=== PATIENT | female | born 1980 | race Caucasian/White ===

== ENCOUNTER 2017-02-09 08:35 | Outpatient (RCR) | payer OTHER ==
[~2017-02-09 08:35] MED LIST: BUTA1TAB55 PO; CETI10CA PO; HYDR1TAB PO
== END 2017-02-09 09:59 | disposition home or self-care (01) ==
PROVIDERS: ATTEND Obstetrics & Gynecology
DX: R10.2 Pelvic and perineal pain (principal)

== ENCOUNTER 2021-02-02 21:33 | Emergency (ER) | payer BC, OTHER ==
[~2021-02-02] VITALS: Ht 162 cm; Wt 97.5 kg
[2021-02-02 22:20] LABS: BASOPHILS # (AUTO) 0.1 10^3/uL (0.0-0.1); BASOPHILS % (AUTO) 0 % (0-10); EOSINOPHILS # (AUTO) 0.2 10^3/uL (0.0-0.3); EOSINOPHILS % (AUTO) 1 % (0-10); HEMATOCRIT 42 % (35-52); HEMOGLOBIN 14.1 g/dL (11.5-16.0); LYMPHOCYTES % (AUTO) 23 % (12-44); MEAN CORPUSCULAR HEMOGLOBIN 30 pg (25-34); MEAN CORPUSCULAR HGB CONC 34 g/dL (32-36); MEAN CORPUSCULAR VOLUME 87 fL (80-99); MEAN PLATELET VOLUME 9.9 fL (9.0-12.2); MONOCYTES # (AUTO) 0.8 10^3/uL (0.0-1.0); MONOCYTES % (AUTO) 6 % (0-12); NEUTROPHILS # (AUTO) 9.4 10^3/uL (1.8-7.8); NEUTROPHILS % (AUTO) 70 % (42-75); PLATELET COUNT 380 10^3/uL (130-400); WHITE BLOOD COUNT 13.5 10^3/uL (4.3-11.0)
[2021-02-02 22:33] LABS: ALBUMIN 4.2 GM/DL (3.2-4.5); CHLORIDE 102 MMOL/L (98-107); POTASSIUM 3.1 MMOL/L (3.6-5.0); SODIUM 138 MMOL/L (135-145)
[2021-02-02 22:34] LABS: CALCIUM 9.2 MG/DL (8.5-10.1)
[2021-02-02 22:35] LABS: GLUCOSE 104 MG/DL (70-105)
[2021-02-02 22:36] LABS: CARBON DIOXIDE 22 MMOL/L (21-32)
[2021-02-02 22:37] LABS: BILIRUBIN,TOTAL 0.2 MG/DL (0.1-1.0)
[2021-02-02 22:39] LABS: ALKALINE PHOSPHATASE 112 U/L (40-136); CREATININE SERUM 0.78 MG/DL (0.60-1.30); ERYTHROCYTE SEDIMENTATION RATE 8 MM/HR (0-20); GFR ESTIMATED > 60
[2021-02-02 22:40] LABS: BUN/CREATININE RATIO 14
[2021-02-02 22:42] LABS: ALANINE AMINOTRANSFERASE 23 U/L (0-55)
[2021-02-02 23:00] LABS: AMPHETAMINE SCREEN, URINE NEGATIVE (NEGATIVE); BARBITURATE SCREEN URINE NEGATIVE (NEGATIVE); BENZODIAZEPINES SCREEN URINE NEGATIVE (NEGATIVE); CANNABINOID SCREEN, URINE NEGATIVE (NEGATIVE); COCAINE SCREEN URINE NEGATIVE (NEGATIVE); METHADONE STAT NEGATIVE (NEGATIVE); METHAMPHETAMINE SCREEN URINE S NEGATIVE (NEGATIVE); OPIATE SCREEN URINE NEGATIVE (NEGATIVE); OXYCODONE STAT NEGATIVE (NEGATIVE); PROPOXYPHENE STAT NEGATIVE (NEGATIVE); TRICYCLIC ANTIDEPRESSANTS SCRE POSITIVE (NEGATIVE)
[2021-02-02] MEDS ORDERED: IOHEXOL 350 MG/ML 100 ML (OMNIPAQUE 350) VIAL IV ONE (23:30)
[2021-02-02] MEDS ORDERED: NS 100 ML (IVPB) BAG IV ONE (23:30)
[2021-02-03] MEDS ORDERED: HYDR50CA3 PO (00:36)
--- NOTE | 2021-02-03 00:36 | ED General ---
General Chief Complaint: Respiratory Problems Stated Complaint: SOB Nursing Triage Note: brought in by [facility] for c/o worsening soa since . Nursing Sepsis Screen: No Definite Risk Allergies and Home Medications Allergies Coded Allergies: Penicillins (Unverified Allergy, Unknown, SWELLING, 02/02/21) theophylline (Unverified Allergy, Unknown, 02/02/21) theophylline anhydrous (Unverified Allergy, Unknown, 02/02/21) Home Medications Butalb/Acetaminophen/Caffeine 1 Each Tablet, 1 EACH PO Q4HR PRN, (Reported) HEADACHE Cetirizine Hcl 10 Mg Capsule, 10 MG PO DAILY, (Reported) Hydrocodone Bit/Acetaminophen 1 Each Tablet, 1-2 EACH PO Q4HR PRN, (Reported) take 1-2 tabs every 4hrs. as needed for pain. 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 oz. kg; 37.00 BMI Method: Progress/Results/Core Measures Suspected Sepsis Recent Fever Within 48 Hours: No Infection Criteria Present: None New/Unexplained Altered Menta: No Sepsis Screen: No Definite Risk SIRS Temperature: Pulse: 89 Respiratory Rate: 24 Laboratory Tests 02/02/21 21:50: White Blood Count 13.5H Blood Pressure 142 /98 Mean: 113 Laboratory Tests 02/02/21 21:50: Creatinine 0.78, Platelet Count 380, Total Bilirubin 0.2 Results/Orders Lab Results Laboratory Tests Test 02/02/21 21:50 Range/Units White Blood Count 13.5 H 4.3-11.0 10^3/uL Red Blood Count 4.77 3.80-5.11 10^6/uL Hemoglobin 14.1 11.5-16.0 g/dL Hematocrit 42 35-52 % Mean Corpuscular Volume 87 80-99 fL Mean Corpuscular Hemoglobin 30 25-34 pg Mean Corpuscular Hemoglobin Concent 34 32-36 g/dL Red Cell Distribution Width 13.6 10.0-14.5 % Platelet Count 380 130-400 10^3/uL Mean Platelet Volume 9.9 9.0-12.2 fL Immature Granulocyte % (Auto) 1 % Neutrophils (%) (Auto) 70 42-75 % Lymphocytes (%) (Auto) 23 12-44 % Monocytes (%) (Auto) 6 0-12 % Eosinophils (%) (Auto) 1 0-10 % Basophils (%) (Auto) 0 0-10 % Neutrophils # (Auto) 9.4 H 1.8-7.8 10^3/uL Lymphocytes # (Auto) 3.0 1.0-4.0 10^3/uL Monocytes # (Auto) 0.8 0.0-1.0 10^3/uL Eosinophils # (Auto) 0.2 0.0-0.3 10^3/uL Basophils # (Auto) 0.1 0.0-0.1 10^3/uL Immature Granulocyte # (Auto) 0.1 0.0-0.1 10^3/uL Erythrocyte Sedimentation Rate 8 0-20 MM/HR D-Dimer < 0.27 0.00-0.49 UG/ML Urine Test NEGATIVE NEGATIVE Sodium Level 138 135-145 MMOL/L Potassium Level 3.1 L 3.6-5.0 MMOL/L Chloride Level 102 98-107 MMOL/L Carbon Dioxide Level 22 21-32 MMOL/L Anion Gap 14 5-14 MMOL/L Blood Urea Nitrogen 11 7-18 MG/DL Creatinine 0.78 0.60-1.30 MG/DL Estimat Glomerular Filtration Rate > 60 BUN/Creatinine Ratio 14 Glucose Level 104 70-105 MG/DL Calcium Level 9.2 8.5-10.1 MG/DL Corrected Calcium 9.0 8.5-10.1 MG/DL Total Bilirubin 0.2 0.1-1.0 MG/DL Aspartate Amino Transf (AST/SGOT) 18 5-34 U/L Alanine Aminotransferase (ALT/SGPT) 23 0-55 U/L Alkaline Phosphatase 112 40-136 U/L Lactate Dehydrogenase 191 125-220 U/L C-Reactive Protein High Sensitivity 0.50 0.00-0.50 MG/DL Total Protein 7.0 6.4-8.2 GM/DL Albumin 4.2 3.2-4.5 GM/DL Procalcitonin 0.02 <0.10 NG/ML Urine Opiates Screen NEGATIVE NEGATIVE Urine Oxycodone Screen NEGATIVE NEGATIVE Urine Methadone Screen NEGATIVE NEGATIVE Urine Propoxyphene Screen NEGATIVE NEGATIVE Urine Barbiturates Screen NEGATIVE NEGATIVE Ur Tricyclic Antidepressants Screen POSITIVE H NEGATIVE Urine Phencyclidine Screen NEGATIVE NEGATIVE Urine Amphetamines Screen NEGATIVE NEGATIVE Urine Methamphetamines Screen NEGATIVE NEGATIVE Urine Benzodiazepines Screen NEGATIVE NEGATIVE Urine Cocaine Screen NEGATIVE NEGATIVE Urine Cannabinoids Screen NEGATIVE NEGATIVE SARS-CoV-2 RNA (RT-PCR) Not Detected Not Detecte Micro Results Microbiology 02/02/21 Influenza Types A,B Antigen (WILLIS) - Final, Complete My Orders Orders - KARINA NGUYEN DO Ed Iv/Invasive Line Start (02/02/21 21:40) Ekg Tracing (02/02/21 21:40) O2 (02/02/21 21:40) Monitor-Rhythm Ecg Trace Only (02/02/21 21:40) Cbc With Automated Diff (02/02/21 21:40) Comprehensive Metabolic Panel (02/02/21 21:40) Fibrin Degradation Products (02/02/21 21:40) Procalcitonin (Pct) (02/02/21 21:40) Hs C Reactive Protein (02/02/21 21:40) Erythrocyte Sedimentation Rate (02/02/21 21:40) LDH (02/02/21 21:40) Ekg Tracing (02/02/21 21:40) Influenza A And B Antigens (02/02/21 21:40) Chest 1 View, Ap/Pa Only (02/02/21 21:40) Hcg,Qualitative Urine (02/02/21 21:40) Covid 19 Inhouse Test (02/02/21 21:40) Drug Screen Stat (Urine) (02/02/21 22:38) Ct Angio Chest W (02/02/21 22:50) Iohexol Injection (Omnipaque 350 Mg/Ml 1 (02/02/21 23:30) Ns (Ivpb) (Sodium Chloride 0.9% Ivpb Bag (02/02/21 23:30) Medications Given in ED Current Medications Medications Dose Ordered Sig/Sinai Route Start Time Stop Time Status Last Admin Dose Admin Iohexol 100 ml ONCE ONCE IV 02/02/21 23:30 02/02/21 23:36 DC 02/02/21 23:24 100 ML Sodium Chloride 80 ml ONCE ONCE IV 02/02/21 23:30 02/02/21 23:36 DC 02/02/21 23:24 80 ML Vital Signs/I&O 02/02/21 21:35 Temp 37.1 Pulse 89 Resp 24 B/P (MAP) 142/98 (113) Pulse Ox 100 O2 Delivery Room Air Capillary Refill : Less Than 3 Seconds Blood Pressure Mean: 113 Departure Impression Primary Impression: SUBJECTIVE DYSPNEA Additional Impressions: Anxiety Hypokalemia Disposition: HOME, SELF-CARE Condition: Stable Departure-Patient Inst. Decision time for Depature: 00:21 Referrals: GERARD DOWNEY MD (PCP) Primary Care Physician Patient Instructions: Anxiety, Adult (DC), Shortness of Breath (Dyspnea) (DC), Hypokalemia (DC) Add. Discharge Instructions: CONTINUE YOUR REGULAR MEDICATIONS PRESCRIBED TAKE POTASSIUM PRESCRIBED FOLLOW UP WITH DR. ANN AND YOUR PSYCHIATRIST THIS WEEK FOR FURTHER CARE All discharge instructions reviewed with patient and/or family. Voiced understanding. Scripts Hydroxyzine Pamoate (Hydroxyzine Pamoate) 50 Mg Capsule 50 MG PO Q6H PRN for ANXIETY, #15 CAP Prov: KARINA NGUYEN DO 02/03/21 KARINA NGUYEN DO February 03, 2021 00:36
[2021-02-03 00:37] VITALS: BP 152/105
--- NOTE | 2021-02-03 07:02 | Diagnostic Imaging Report ---
PROCEDURE: CT angiography of the chest with contrast. TECHNIQUE: Multiple contiguous axial images were obtained through the chest after uneventful bolus administration of intravenous contrast. 3D reconstructed CTA MIP acquisitions were also performed. Auto Exposure Controls were utilized during the CT exam to meet ALARA standards for radiation dose reduction. INDICATION: Cough, pulmonary embolism COMPARISON: None FINDINGS: There is slight cardiac enlargement. No pericardial effusion is seen. The pulmonary arteries and aorta grossly unremarkable. There is no lymphadenopathy. The lungs are clear. There is no infiltrate. Osseous structures are age appropriate. Visualized upper abdominal solid organs are grossly normal. IMPRESSION: Negative CT angio chest. Agree with preliminary report. Dictated by: Dictated on workstation # [id number]
--- NOTE | 2021-02-03 07:03 | Diagnostic Imaging Report ---
INDICATION: Dyspnea No prior examinations are available for comparison. FINDINGS: The heart size, mediastinal configuration, and pulmonary vascularity are within normal limits. There is no pleural effusion, pneumothorax, or pneumonia. The osseous structures are unremarkable. IMPRESSION: No acute cardiopulmonary abnormality. Dictated by: Dictated on workstation # [id number]
== END 2021-02-03 00:44 | disposition home or self-care (01) ==
LOC: EDUNIT# 21:33 → ER 21:34
DX: R06.02 Shortness of breath (principal); F41.9 Anxiety disorder, unspecified; E87.6 Hypokalemia; Z88.0 Allergy status to penicillin; Z88.8 Allergy status to other drugs, medicaments and biological substances
CPT/HCPCS: 36415; 71045; 71275; 80053; 80306; 83615; 84145; 84703; 85025; 85379; 85652; 86141; 87636; 87804; 93005; 93041

== ENCOUNTER 2023-02-18 05:32 | Outpatient (CLI) | payer BC ==
[~2023-02-18] VITALS: Ht 162.6 cm; Wt 104.5 kg
[~2023-02-18 05:32] MED LIST changes: +HYDR50CA3 PO
[2023-02-18] MEDS ORDERED: ONDA8TAB13 SL (12:05)
[2023-02-18] MEDS ORDERED: METO-310 PO (12:05)
[2023-02-18] MEDS ORDERED: ESCI10TA PO (12:05)
[2023-02-18] MEDS ORDERED: AMPH20TA2 PO (12:05)
[2023-02-18] MEDS ORDERED: UBRO100T PO (12:05)
[2023-02-18] MEDS ORDERED: DULO20CA PO (12:05)
[2023-02-18] MEDS ORDERED: AMIT100T2 PO (12:05)
[2023-02-18] MEDS ORDERED: RIZA10TA94 PO (12:05)
[2023-02-18] MEDS ORDERED: SEMA1PEN5 SQ (12:05)
[2023-02-18] MEDS ORDERED: PANT20TA2 PO (12:05)
[2023-02-18] MEDS ORDERED: GABA-490 PO (12:05)
[2023-02-18] MEDS ORDERED: LOSA25TA41 PO (12:09)
== END 2023-02-18 12:31 | disposition home or self-care (01) ==
LOC: PREOP 05:32
PROVIDERS: ATTEND Otolaryngology Otolaryngology/Facial Plastic Surgery
DX: Z01.818 Encounter for other preprocedural examination (principal)

== ENCOUNTER 2023-02-25 06:52 | Day surgery (SDC) | payer BC ==
[2023-02-25] VITALS (12 sets, daily range): BP systolic 122–144; BP diastolic 62–91
[~2023-02-25 06:52] MED LIST changes: +AMIT100T2 PO; +AMPH20TA2 PO; +DULO20CA PO; +ESCI10TA PO; +GABA-490 PO; +LOSA25TA41 PO; +METO-310 PO; +ONDA8TAB13 SL; +PANT20TA2 PO; +RIZA10TA94 PO; +SEMA1PEN5 SQ; +UBRO100T PO
[2023-02-25 07:42] LABS: BASOPHILS # (AUTO) 0.1 10^3/uL (0.0-0.1); BASOPHILS % (AUTO) 1 % (0-10); EOSINOPHILS % (AUTO) 9 % (0-10); HEMATOCRIT 39 % (35-52); HEMOGLOBIN 13.3 g/dL (11.5-16.0); LYMPHOCYTES # (AUTO) 2.7 10^3/uL (1.0-4.0); LYMPHOCYTES % (AUTO) 24 % (12-44); MEAN CORPUSCULAR HEMOGLOBIN 30 pg (25-34); MEAN CORPUSCULAR HGB CONC 34 g/dL (32-36); MEAN CORPUSCULAR VOLUME 89 fL (80-99); MEAN PLATELET VOLUME 9.8 fL (9.0-12.2); MONOCYTES # (AUTO) 0.7 10^3/uL (0.0-1.0); MONOCYTES % (AUTO) 6 % (0-12); NEUTROPHILS # (AUTO) 6.7 10^3/uL (1.8-7.8); NEUTROPHILS % (AUTO) 59 % (42-75); PLATELET COUNT 302 10^3/uL (130-400); WHITE BLOOD COUNT 11.2 10^3/uL (4.3-11.0)
[2023-02-25] MEDS ORDERED: CETI10TA49 PO (07:42)
[2023-02-25] MEDS ORDERED: CELE200C PO (07:42)
[2023-02-25] MEDS ORDERED: RT-ALBUINH INH (07:42)
[2023-02-25] MEDS ORDERED: SCOPOLAMINE 1.5 MG (TRANSDERM-SCOP) PATCH TD ONE (07:45)
[2023-02-25] MEDS ORDERED: FAMOTIDINE 20MG/2ML IV (PEPCID) IVP ONE (07:45)
[2023-02-25] MEDS ORDERED: ONDANSETRON 4 MG/2 ML (SDV) Z0FRAN IVP ONE (07:45)
[2023-02-25] MEDS ORDERED: MIDAZOLAM 2 MG/2 ML (VERSED) VIAL IM ONE (07:45)
[2023-02-25] MEDS ORDERED: ONDANSETRON 4 MG/2 ML (SDV) Z0FRAN ONE ×2 (07:46→08:10)
[2023-02-25] MEDS ORDERED: SCOPOLAMINE 1.5 MG (TRANSDERM-SCOP) PATCH ONE (07:46)
[2023-02-25] MEDS ORDERED: MIDAZOLAM 2 MG/2 ML (VERSED) VIAL ONE ×2 (07:46→08:10)
[2023-02-25] MEDS ORDERED: FAMOTIDINE 20MG/2ML IV (PEPCID) ONE (07:47)
[2023-02-25 07:52] LABS: POTASSIUM 3.6 MMOL/L (3.6-5.0)
[2023-02-25] MEDS: LACTATED RINGERS 1,000 ML IV PRN ×2 (07:55→10:07)
[2023-02-25 07:58] LABS: CREATININE SERUM 0.72 MG/DL (0.60-1.30)
[2023-02-25] MEDS ORDERED: MIDAZOLAM 2 MG/2 ML (VERSED) VIAL IVP ONE (08:00)
--- NOTE | 2023-02-25 08:08 | Progress Note-Pre Operative ---
Pre-Operative Progress Note Date of Available H&P: Feb 25, 2023 Date H&P Reviewed: Feb 25, 2023 Time H&P Reviewed: 07:50 History & Physical: H&P Reviewed, Patient Examed, No changes noted Changes from last HP none Pre-Operative Diagnosis: Deviated Nasal Septum, Bilat Hypr of Infer Turbs JF LOPEZ MD Feb 25, 2023 08:08
--- NOTE | 2023-02-25 08:08 | Progress Note-Post Operative ---
Post-Operative Progess Note Surgeon (s)/Industrial Health Engineer (s) Surgeon JF LOPEZ MD Industrial Health Engineer n/a Pre-Operative Diagnosis Deviated Nasal Septum, Bilat Hypr of Infer Turbs Post-Operative Diagnosis same Post-Op Procedure Note Date of Procedure: Feb 25, 2023 Name of Procedure Performed: Nasal Septoplasty, Bilat Red of INf Turbs Description & Findings Description and Findings: n/a Anesthesia Type get Estimated Blood Loss minimal Packing none. Specimen(s) collected/removed nasal septum, JF LOPEZ MD Feb 25, 2023 08:08
[2023-02-25] MEDS ORDERED: LIDOCAINE PF 2% 5 ML (XYLOCAINE) VIAL ONE (08:10)
[2023-02-25] MEDS ORDERED: SEVOFLURANE (ULTANE) 15 ML INHAL SOLN ONE ×2 (08:10→09:56)
[2023-02-25] MEDS ORDERED: proPOfol 200 MG/20 ML (DIPRIVAN) VIAL IV ONE (08:10)
[2023-02-25] MEDS ORDERED: fentaNYL INJ 100 MCG/2 ML AMP ONE (08:10)
[2023-02-25] MEDS ORDERED: ROCURONIUM 50 MG/5 ML (ZEMURON) VIAL IV ONE (08:12)
[2023-02-25] MEDS ORDERED: HYDROcodone/APAP 5 MG/325 MG (LORTAB) TAB PO PRN (08:15)
[2023-02-25] MEDS ORDERED: D5 1/2 NS W/KCL 20 MEQ/L 1,000 ML IV SCH (08:15)
[2023-02-25] MEDS ORDERED: COCAINE HCL 4% 2 ML SYR ONE (08:21)
[2023-02-25] MEDS ORDERED: PHENYLEPHRINE 0.5% NASAL SPR (NEO-SYNEPHRINE) REG ONE (08:21)
[2023-02-25] MEDS ORDERED: LIDOCAINE/EPI 1%-1:100,000 (XYLOCAINE) 20ML ONE (08:22)
[2023-02-25] MEDS ORDERED: SUGAMMADEX 500 MG/5 ML VIAL (BRIDION) IV ONE (09:36)
[2023-02-25] MEDS ORDERED: HYDROmorphone 2 MG/ML VIAL (DILAUDID) IV ONE (10:00)
[2023-02-25] MEDS ORDERED: ONDANSETRON 4 MG/2 ML (SDV) Z0FRAN IVP PRN (10:00)
[2023-02-25] MEDS ORDERED: LEVO-55 PO (11:02)
[2023-02-25] MEDS ORDERED: ACHD5005 PO (11:02)
[2023-02-25] MEDS ORDERED: HYDROcodone/APAP 5 MG/325 MG (LORTAB) TAB ONE (11:45)
[2023-02-25] MEDS ORDERED: HYDROcodone/APAP 5 MG/325 MG (LORTAB) TAB PO ONE (11:45)
== END 2023-02-25 12:35 | disposition home or self-care (01) ==
LOC: SDC 06:52
PROVIDERS: ATTEND Otolaryngology Otolaryngology/Facial Plastic Surgery
DX: J34.3 Hypertrophy of nasal turbinates (principal); J34.2 Deviated nasal septum; M26.69 Other specified disorders of temporomandibular joint; K21.9 Gastro-esophageal reflux disease without esophagitis; Z79.899 Other long term (current) drug therapy
CPT/HCPCS: 36415; 80048; 85025; 87081